=== PATIENT | female | born 1945 | race Caucasian/White ===

== ENCOUNTER 2021-08-30 15:49 | Emergency (ER) | payer MEDICARE ==
[~2021-08-30] VITALS: Ht 152.4 cm; Wt 40.8 kg
[2021-08-30] MEDS ORDERED: SULF1TAB48 PO (16:44)
[2021-08-30] MEDS ORDERED: SULFAMETH/TRIMETH 800/160 MG TABLET PO ONE (16:45)
[2021-08-30] MEDS ORDERED: SULFAMETH/TRIMETH 800/160 MG TABLET ONE (16:53)
--- NOTE | 2021-08-30 17:40 | NUR ---
ambulance at bedside to transfer the pt back to [facility]. Patient discharged to home in stable condition. Written and verbal after care instructions given. Patient verbalizes understanding of instructions. Stressed follow up or return to ER for worsening s/s.
[2021-08-30 17:41] VITALS: BP 101/55
== END 2021-08-30 17:42 | disposition home or self-care (01) ==
LOC: ER 15:50
DX: L05.01 Pilonidal cyst with abscess (principal); Z88.0 Allergy status to penicillin; Z88.8 Allergy status to other drugs, medicaments and biological substances; J44.9 Chronic obstructive pulmonary disease, unspecified; G31.84 Mild cognitive impairment of uncertain or unknown etiology
CPT/HCPCS: A4663